=== PATIENT | male | born 1955 | race Caucasian/White ===

== ENCOUNTER 2024-08-23 09:33 | Emergency (ER) | payer BC, SELFPAY ==
[2024-08-23 09:35] VITALS: BP 145/76
--- NOTE | 2024-08-23 09:57 | ED.GENMED ---
History of Present Illness
General
Chief Complaint: DVT/Possible Blood Clot
Time Seen by Provider: 08/23/24 09:47
History of Present Illness
History of Present Illness:
68-year-old male presents to the emergency department for evaluation of left leg swelling for the past 2 weeks. Seems to wax and wane to some degree. Reports pain to the calf and the popliteal region of the leg. No recent immobilization or
prolonged travel, denies any prior history of DVT. No recent surgeries in the past 12 weeks. Denies chest pain or shortness of breath
Review of Systems
Review of Systems
Allergies reviewed?: Yes
All Other Systems: ROS reviewed and negative except as documented in HPI and ROS
Phy Exam
Physical Exam
Physical Exam:
GEN: Well appearing, NAD, WDWN
HEENT: Oral mucosa moist, no scleral icterus
Cardiac: Regular rate
Lung: No respiratory distress, no tachypnea
MSK: Moderate edema in the left calf extending to the ankle, 1+ pitting. Normal range of motion of the left ankle and the left knee, no pain with passive stretch of the left ankle
Skin: Good color, no pallor or jaundice, no rashes
Neuro: AO x3, moves all extremities freely
Psych: Calm, cooperative
Course
Orders/Labs/Results
Orders:
Orders
08/23/24 09:40
US Periph Venous LOWER Ext LT Urgent
Comment:
Reason For Exam: swelling
Vital Signs
Initial and Last Documented VS:
Initial Vital Signs
Temp Pulse Resp BP Pulse Ox
97.6 F 54 16 145/76 99
08/23/24 09:35 08/23/24 09:35 08/23/24 09:35 08/23/24 09:35 08/23/24 09:35
Last Documented Vital Signs
Temp Pulse Resp BP Pulse Ox
97.6 F 54 16 145/76 99
08/23/24 09:35 08/23/24 09:35 08/23/24 09:35 08/23/24 09:35 08/23/24 09:35
MDM/Problems Addressed
MDM/Problems Addressed:
DVT study is unremarkable, likely ruptured Wbester's cyst, discussed supportive care
*Critical Care Note
Total Time (30-74mins, 75-104mins- exclusive of procedures): Not Applicable
ED Attending Note
-
Portions of this chart may have been created with voice recognition software.� Occasional wrong word or��sound alike� substitutions may have occurred due to the inherent limitations of voice recognition software.
Discharge Plan
Departure
Patient Disposition: Home (Routine Discharge)
Date of Disposition: 08/23/24
Time of Disposition: 11:27
Patient with high blood pressure during this ER visit?: No
Discharge Problem:
Edema of left lower leg
Instructions: Webster's Cyst (DC)
Referrals:
Roger Lawrence MD [Family Provider, Family Practice]
Interventions
Interventions:
*Risk Screen - Suicide Last Done: 08/23/24 11:02
*Nursing Disposition Last Done: 08/23/24 11:35
ED-Peripheral Vascular Assessment Last Done: 08/23/24 11:03
ED-Skin Assessment Last Done: 08/23/24 11:02
Discharge Date and Time
Print Language: [id number]
[2024-08-23 11:02] VITALS: BMI 31.7
== END 2024-08-23 11:35 | disposition home or self-care (01) ==
LOC: EMR 09:33
PROVIDERS: EMERGENCY PHYSICIAN Emergency Medicine; FAMILY PHYSICIAN Family Medicine
DX: R60.0 Localized edema (principal)
CPT/HCPCS: 99284; 93971